=== PATIENT | female | born 1935 | race Caucasian/White ===

== ENCOUNTER 2019-08-27 19:00 | Inpatient (IN) ==
[2019-08-27] MEDS ORDERED: Naloxone 0.4 MG/ML INJ IVP PRN (22:11)
[2019-08-27] MEDS ORDERED: 0.9 % Sodium Chloride 1,000 ML IVC SCH (22:15)
[2019-08-27] MEDS ORDERED: Vancomycin (wt based) 1,000 MG VIAL IVPB SCH (23:00)
[2019-08-27 23:06] LABS: White Blood Count 14.5 K/mcL (4.3-11.1)
[2019-08-27 23:07] LABS: Basophils % 0.1 %; Hematocrit 36.8 % (35.3-44.9); Hemoglobin 11.3 g/dL (11.5-15.4); Immature Granulocytes % 0.4 % (0-4); Lymphocytes % 6.9 %; Mean Corpuscular HGB Conc 30.7 g/dL (31.6-35.5); Mean Corpuscular Hemoglobin 29.6 pg (28.0-33.3); Mean Corpuscular Volume 96.3 fL (83.0-100.0); Mean Platelet Volume 10.9 fL (9.4-12.4); Monocytes # 1.4 K/mcL (0.0-1.3); Monocytes % 9.4 %; Neutrophils # 12.1 K/mcL (1.6-8.9); Platelet Count 289 K/mcL (140-400); Red Blood Count 3.82 M/mcL (3.82-4.97); Red Cell Distribution Width 14.6 % (11.5-14.5); Segmented Neutrophils % 83.2 %
[2019-08-27] MEDS: Azithromycin 500 MG in 0.9 % Sodium Chloride 250 ML IVPB SCH (23:21)
[2019-08-27] MEDS ORDERED: *HR* Metoprolol 5 MG/5 ML VIAL IVP PRN (23:24)
[2019-08-27 23:28] LABS: Potassium 4.1 mEq/L (3.5-5.1)
[2019-08-27] MEDS ORDERED: Acetaminophen IV 1,000 MG/100 ML INFUS..BTL IVPB ONE (23:59)
[2019-08-28] MEDS: Piperacillin/Tazobactam 3.375 GM in 0.9 % Sodium Chloride Mini Bag 100 ML IVPB SCH ×4 (01:14→23:33)
[2019-08-28 04:20] LABS: Adenovirus Not Detected (Not Detect); Coronavirus 229E Not Detected (Not Detect); Coronavirus HKU1 Not Detected (Not Detect); Coronavirus NL63 Not Detected (Not Detect); Coronavirus OC43 Not Detected (Not Detect); Human Metapneumovirus Not Detected (Not Detect); Human Rhinovirus/Enterovirus Not Detected (Not Detect)
[2019-08-28 04:21] LABS: Bordetella Pertussis Not Detected (Not Detect); Chlamydophila pneumoniae Not Detected (Not Detect); Influenza B Not Detected (Not Detect); Mycoplasma pneumoniae Not Detected (Not Detect); Parainfluenza Virus 1 Not Detected (Not Detect); Parainfluenza Virus 2 Not Detected (Not Detect); Parainfluenza Virus 3 Not Detected (Not Detect); Parainfluenza Virus 4 Not Detected (Not Detect); Respiratory Syncytial Virus Not Detected (Not Detect)
[2019-08-28 04:23] LABS: Influenza A Subtype 2009 H1 DETECTED (Not Detect)
[2019-08-28 04:51] LABS: Basophils % 0.1 %; Hematocrit 32.4 % (35.3-44.9); Hemoglobin 10.4 g/dL (11.5-15.4); Immature Granulocytes % 0.5 % (0-4); Lymphocytes % 6.6 %; Mean Corpuscular HGB Conc 32.1 g/dL (31.6-35.5); Mean Corpuscular Volume 93.4 fL (83.0-100.0); Mean Platelet Volume 11.4 fL (9.4-12.4); Monocytes # 1.3 K/mcL (0.0-1.3); Monocytes % 9.2 %; Neutrophils # 12.2 K/mcL (1.6-8.9); Platelet Count 279 K/mcL (140-400); Red Blood Count 3.47 M/mcL (3.82-4.97); Red Cell Distribution Width 14.9 % (11.5-14.5); Segmented Neutrophils % 83.6 %; White Blood Count 14.6 K/mcL (4.3-11.1)
[2019-08-28 05:13] LABS: Calcium 8.7 mg/dL (8.6-10.3); Potassium 4.1 mEq/L (3.5-5.1)
[2019-08-28] MEDS: Famotidine 20 MG/2 ML VIAL IVP SCH ×2 (05:14→18:41)
[2019-08-28] MEDS: Oseltamivir 6 MG/ML MLS GTUBE SCH ×2 (05:14→23:32)
[2019-08-28] MEDS ORDERED: Oseltamivir 6 MG/ML MLS PO SCH (05:15)
[2019-08-28] MEDS ORDERED: Ipratropium Neb 0.5 MG NEBULIZER IH PRN (07:35)
[2019-08-28] MEDS ORDERED: Aminoglycoside Consult 1 EACH MC ONE (08:27)
[2019-08-28] MEDS: amLODIPine 5 MG TABLET GTUBE SCH (09:04)
[2019-08-28] MEDS: Apixaban 5 MG TABLET GTUBE SCH ×2 (09:04→23:32)
[2019-08-28] MEDS: Levalbuterol Neb 0.63 MG/3 ML IH SCH ×3 (10:36→21:41)
[2019-08-28] MEDS ORDERED: Ringers Solution, Lactated 1,000 ML IVC SCH (13:00)
[2019-08-28 13:45] LABS: Estimated Average Glucose 137 mg/dl
[2019-08-28 16:17] LABS: Bacteria,Urine None Seen per hpf (None-Few); Bilirubin,Urine Negative (Negative); Blood,Urine Moderate (Negative); Clarity,Urine Cloudy (Clear); Color,Urine Yellow (Yellow); Glucose,Urine (UA) Normal (Normal); Ketones,Urine Negative (Negative); Leukocyte Esterase,Urine Trace (Negative); Nitrite,Urine Negative (Negative); PH,Urine 5.5 pH Units (5.0-8.0); Protein,Urine 30 mg/dL (Neg-Trace); Specific Gravity,Urine 1.026 (1.010-1.025); Squamous Epithelial Cell,Urine Many per lpf (None-Few); Urobilinogen,Urine Normal (Normal); WBC,Urine 15-30 per hpf (0-3)
[2019-08-28 16:39] LABS: Uric Acid Crystals,Urine Present
[2019-08-28] MEDS ORDERED: Patient Taking Own Medication 1 EACH GTUBE SCH (22:15)
[2019-08-28] MEDS: Azithromycin 500 MG in 0.9 % Sodium Chloride 250 ML IVPB SCH (23:32)
[2019-08-28] MEDS: NAMZARIC GTUBE SCH (23:33)
[2019-08-29 02:35] LABS: Basophils % 0.2 %; Eosinophils % 0.2 %; Hematocrit 32.1 % (35.3-44.9); Hemoglobin 10.2 g/dL (11.5-15.4); Immature Granulocytes % 0.7 % (0-4); Lymphocytes % 7.5 %; Mean Corpuscular HGB Conc 31.8 g/dL (31.6-35.5); Mean Corpuscular Hemoglobin 29.3 pg (28.0-33.3); Mean Corpuscular Volume 92.2 fL (83.0-100.0); Mean Platelet Volume 11.4 fL (9.4-12.4); Monocytes # 0.9 K/mcL (0.0-1.3); Monocytes % 7.1 %; Nucleated Red Blood Cells 0.2 /100 WBC (0); Platelet Count 332 K/mcL (140-400); Red Blood Count 3.48 M/mcL (3.82-4.97); Red Cell Distribution Width 15.1 % (11.5-14.5); Segmented Neutrophils % 84.3 %
[2019-08-29 02:50] LABS: BUN/Creatinine Ratio 43 (6-26); Blood Urea Nitrogen 44 mg/dL (8-23); Calcium 8.5 mg/dL (8.6-10.3); Carbon Dioxide 19 mEq/L (23-29); Chloride 118 mEq/L (98-107); Glucose 96 mg/dL (70-105); Magnesium 2.4 mg/dL (1.6-2.6); Osmolality,Calculated 321 (280-300); Potassium 3.9 mEq/L (3.5-5.1); Sodium 150 mEq/L (136-145); eGFR For African Americans > 60 (> 60); eGFR For Non-African Americans 52 (> 60)
[2019-08-29] MEDS: Levalbuterol Neb 0.63 MG/3 ML IH SCH ×4 (03:22→21:37)
[2019-08-29] MEDS: Famotidine 20 MG/2 ML VIAL IVP SCH ×2 (06:28→17:48)
[2019-08-29] MEDS ORDERED: 0.45 % Sodium Chloride 250 ML IVC SCH ×2 (07:30)
[2019-08-29] MEDS ORDERED: Ringers Solution, Lactated 1,000 ML ONE (07:50)
[2019-08-29] MEDS: Piperacillin/Tazobactam 3.375 GM in 0.9 % Sodium Chloride Mini Bag 100 ML IVPB SCH ×3 (08:54→23:42)
[2019-08-29] MEDS: amLODIPine 5 MG TABLET GTUBE SCH (08:57)
[2019-08-29] MEDS: Apixaban 5 MG TABLET GTUBE SCH ×2 (08:57→21:50)
[2019-08-29] MEDS: Oseltamivir 6 MG/ML MLS GTUBE SCH ×2 (09:19→21:50)
[2019-08-29] MEDS: NAMZARIC GTUBE SCH (09:19)
[2019-08-29] MEDS: Azithromycin 500 MG in 0.9 % Sodium Chloride 250 ML IVPB SCH (23:42)
[2019-08-30] MEDS: Levalbuterol Neb 0.63 MG/3 ML IH SCH ×4 (04:17→21:25)
[2019-08-30 05:03] LABS: Basophils % 0.1 %; Eosinophils # 0.1 K/mcL (0.0-0.6); Eosinophils % 0.5 %; Hematocrit 31.9 % (35.3-44.9); Immature Granulocytes % 0.4 % (0-4); Lymphocytes # 0.8 K/mcL (0.6-4.6); Lymphocytes % 7.7 %; Mean Corpuscular HGB Conc 31.3 g/dL (31.6-35.5); Mean Corpuscular Hemoglobin 29.2 pg (28.0-33.3); Mean Platelet Volume 11.6 fL (9.4-12.4); Monocytes # 0.8 K/mcL (0.0-1.3); Monocytes % 8.4 %; Nucleated Red Blood Cells 0.3 /100 WBC (0); Platelet Count 323 K/mcL (140-400); Red Blood Count 3.43 M/mcL (3.82-4.97); Red Cell Distribution Width 15.2 % (11.5-14.5); Segmented Neutrophils % 82.9 %; White Blood Count 9.7 K/mcL (4.3-11.1)
[2019-08-30 05:34] LABS: BUN/Creatinine Ratio 36 (6-26); Blood Urea Nitrogen 37 mg/dL (8-23); Calcium 8.4 mg/dL (8.6-10.3); Carbon Dioxide 19 mEq/L (23-29); Chloride 121 mEq/L (98-107); Glucose 103 mg/dL (70-105); Magnesium 2.4 mg/dL (1.6-2.6); Osmolality,Calculated 321 (280-300); Potassium 3.4 mEq/L (3.5-5.1); Sodium 151 mEq/L (136-145); eGFR For African Americans > 60 (> 60); eGFR For Non-African Americans 50 (> 60)
[2019-08-30] MEDS: Famotidine 20 MG/2 ML VIAL IVP SCH (05:56)
[2019-08-30] MEDS: Piperacillin/Tazobactam 3.375 GM in 0.9 % Sodium Chloride Mini Bag 100 ML IVPB SCH ×2 (09:19→15:12)
[2019-08-30] MEDS: amLODIPine 5 MG TABLET GTUBE SCH (09:23)
[2019-08-30] MEDS: Apixaban 5 MG TABLET GTUBE SCH ×2 (09:27→21:56)
[2019-08-30] MEDS: NAMZARIC GTUBE SCH (11:19)
[2019-08-30] MEDS: Oseltamivir 6 MG/ML MLS GTUBE SCH ×2 (11:19→21:58)
[2019-08-30] MEDS ORDERED: Furosemide 20 MG/2 ML VIAL IVP ONE (11:48)
[2019-08-30] MEDS: Leptospermum Honey Gel 44 ML TUBE TP SCH ×2 (15:12→21:58)
[2019-08-30 15:58] LABS: ABG Base Excess -1 mEq/L (-2 to 3); ABG HCO3 20 mEq/L (21-27); ABG Oxygen Saturation 95 % (95-98); ABG PCO2 25 mmHg (35-45); ABG PH 7.52 pH Units (7.32-7.45); ABG PO2 63 mmHg (85-104); ABG TCO2 21 mEq/L (20-26)
[2019-08-30] MEDS ORDERED: Perflutren Lipid Microsphere 1.3 ML in 0.9 % Sodium Chloride 8.7 ML IVP ONE (18:00)
[2019-08-30] MEDS: Azithromycin 500 MG in 0.9 % Sodium Chloride 250 ML IVPB SCH (23:42)
[2019-08-31] MEDS: Piperacillin/Tazobactam 3.375 GM in 0.9 % Sodium Chloride Mini Bag 100 ML IVPB SCH ×3 (01:28→17:08)
[2019-08-31 01:40] LABS: BUN/Creatinine Ratio 30 (6-26); Blood Urea Nitrogen 30 mg/dL (8-23); Calcium 8.2 mg/dL (8.6-10.3); Carbon Dioxide 19 mEq/L (23-29); Chloride 117 mEq/L (98-107); Glucose 110 mg/dL (70-105); Magnesium 2.2 mg/dL (1.6-2.6); Osmolality,Calculated 309 (280-300); Potassium 3.3 mEq/L (3.5-5.1); Sodium 146 mEq/L (136-145); eGFR For African Americans > 60 (> 60); eGFR For Non-African Americans 53 (> 60)
[2019-08-31] MEDS: Levalbuterol Neb 0.63 MG/3 ML IH SCH ×4 (04:07→22:24)
[2019-08-31] MEDS ORDERED: Potassium Chloride Elixir 20 MEQ/15 ML UDC GTUBE ONE (07:49)
[2019-08-31] MEDS: amLODIPine 5 MG TABLET GTUBE SCH (08:13)
[2019-08-31] MEDS: Apixaban 5 MG TABLET GTUBE SCH ×2 (08:13→22:00)
[2019-08-31 08:14] LABS: Basophils % 0.3 %; Eosinophils # 0.2 K/mcL (0.0-0.6); Eosinophils % 2.2 %; Hematocrit 34.2 % (35.3-44.9); Hemoglobin 10.8 g/dL (11.5-15.4); Immature Granulocytes % 1.2 % (0-4); Lymphocytes # 0.9 K/mcL (0.6-4.6); Lymphocytes % 8.8 %; Mean Corpuscular HGB Conc 31.6 g/dL (31.6-35.5); Mean Corpuscular Hemoglobin 29.7 pg (28.0-33.3); Monocytes # 0.9 K/mcL (0.0-1.3); Neutrophils # 7.7 K/mcL (1.6-8.9); Nucleated Red Blood Cells 0.4 /100 WBC (0); Platelet Count 340 K/mcL (140-400); Red Blood Count 3.64 M/mcL (3.82-4.97); Red Cell Distribution Width 14.9 % (11.5-14.5); Segmented Neutrophils % 78.5 %; White Blood Count 9.9 K/mcL (4.3-11.1)
[2019-08-31] MEDS: Leptospermum Honey Gel 44 ML TUBE TP SCH ×2 (08:14→22:01)
[2019-08-31] MEDS: NAMZARIC GTUBE SCH (08:14)
[2019-08-31] MEDS: Famotidine 20 MG/2 ML VIAL IVP SCH (08:14)
[2019-08-31] MEDS: Oseltamivir 6 MG/ML MLS GTUBE SCH ×2 (08:16→22:01)
[2019-08-31 09:32] LABS: Mycoplasma pneumoniae IgG 0.06 U/L (<=0.09)
[2019-08-31] MEDS: Azithromycin 500 MG in 0.9 % Sodium Chloride 250 ML IVPB SCH (23:52)
[2019-09-01] MEDS: Piperacillin/Tazobactam 3.375 GM in 0.9 % Sodium Chloride Mini Bag 100 ML IVPB SCH ×3 (02:07→15:59)
[2019-09-01 02:10] LABS: Basophils % 0.3 %; Eosinophils # 0.2 K/mcL (0.0-0.6); Eosinophils % 2.4 %; Hemoglobin 10.4 g/dL (11.5-15.4); Immature Granulocytes % 1.6 % (0-4); Lymphocytes % 10.6 %; Mean Corpuscular HGB Conc 30.6 g/dL (31.6-35.5); Mean Corpuscular Hemoglobin 29.4 pg (28.0-33.3); Mean Platelet Volume 11.5 fL (9.4-12.4); Monocytes # 0.8 K/mcL (0.0-1.3); Monocytes % 8.5 %; Neutrophils # 7.2 K/mcL (1.6-8.9); Nucleated Red Blood Cells 0.4 /100 WBC (0); Platelet Count 339 K/mcL (140-400); Red Blood Count 3.54 M/mcL (3.82-4.97); Segmented Neutrophils % 76.6 %; White Blood Count 9.5 K/mcL (4.3-11.1)
[2019-09-01 02:22] LABS: BUN/Creatinine Ratio 29 (6-26); Blood Urea Nitrogen 24 mg/dL (8-23); Calcium 8.5 mg/dL (8.6-10.3); Carbon Dioxide 18 mEq/L (23-29); Chloride 117 mEq/L (98-107); Glucose 93 mg/dL (70-105); Osmolality,Calculated 306 (280-300); Potassium 3.8 mEq/L (3.5-5.1); Sodium 146 mEq/L (136-145); eGFR For African Americans > 60 (> 60); eGFR For Non-African Americans > 60 (> 60)
[2019-09-01 02:26] LABS: Magnesium 2.2 mg/dL (1.6-2.6); Troponin I 0.03 ng/mL (< 0.04)
[2019-09-01] MEDS: Levalbuterol Neb 0.63 MG/3 ML IH SCH ×4 (03:22→22:15)
[2019-09-01] MEDS: Apixaban 5 MG TABLET GTUBE SCH ×2 (09:56→22:08)
[2019-09-01] MEDS: Famotidine 20 MG/2 ML VIAL IVP SCH (09:56)
[2019-09-01] MEDS: Oseltamivir 6 MG/ML MLS GTUBE SCH ×2 (09:56→22:08)
[2019-09-01] MEDS: amLODIPine 5 MG TABLET GTUBE SCH (09:58)
[2019-09-01] MEDS: Leptospermum Honey Gel 44 ML TUBE TP SCH ×2 (09:58→22:08)
[2019-09-01] MEDS: NAMZARIC GTUBE SCH (09:59)
[2019-09-01] MEDS: GuaiFENesin Liq 200 MG/10 ML UDC GTUBE PRN (18:44)
[2019-09-02] MEDS: Piperacillin/Tazobactam 3.375 GM in 0.9 % Sodium Chloride Mini Bag 100 ML IVPB SCH ×2 (01:15→09:32)
[2019-09-02 01:56] LABS: Hematocrit 33.3 % (35.3-44.9); Hemoglobin 10.2 g/dL (11.5-15.4); Mean Corpuscular HGB Conc 30.6 g/dL (31.6-35.5); Mean Corpuscular Hemoglobin 29.3 pg (28.0-33.3); Mean Corpuscular Volume 95.7 fL (83.0-100.0); Mean Platelet Volume 11.2 fL (9.4-12.4); Platelet Count 324 K/mcL (140-400); Red Blood Count 3.48 M/mcL (3.82-4.97); Red Cell Distribution Width 14.9 % (11.5-14.5); White Blood Count 10.1 K/mcL (4.3-11.1)
[2019-09-02 02:21] LABS: BUN/Creatinine Ratio 24 (6-26); Blood Urea Nitrogen 20 mg/dL (8-23); Calcium 8.2 mg/dL (8.6-10.3); Carbon Dioxide 20 mEq/L (23-29); Chloride 112 mEq/L (98-107); Glucose 123 mg/dL (70-105); Osmolality,Calculated 296 (280-300); Potassium 3.4 mEq/L (3.5-5.1); Sodium 141 mEq/L (136-145); eGFR For African Americans > 60 (> 60); eGFR For Non-African Americans > 60 (> 60)
[2019-09-02] MEDS: Levalbuterol Neb 0.63 MG/3 ML IH SCH ×4 (03:35→21:39)
[2019-09-02] MEDS: Azithromycin 250 MG TABLET PO SCH (09:26)
[2019-09-02] MEDS: Apixaban 5 MG TABLET GTUBE SCH ×2 (09:26→21:31)
[2019-09-02] MEDS: amLODIPine 5 MG TABLET GTUBE SCH (09:27)
[2019-09-02] MEDS: Famotidine 20 MG/2 ML VIAL IVP SCH (09:32)
[2019-09-02] MEDS: Leptospermum Honey Gel 44 ML TUBE TP SCH (09:33)
[2019-09-02] MEDS: NAMZARIC GTUBE SCH (09:33)
[2019-09-02] MEDS ORDERED: *HR* LORazepam 0.5 MG TABLET PO PRN (14:19)
[2019-09-02] MEDS: *HR* OxyCODONE Oral Soln 5 MG/5 ML UD.LIQ GTUBE PRN ×2 (15:05→21:31)
[2019-09-02] MEDS ORDERED: Scopolamine Patch 1.5 MG PATCH.TD72 TD SCH (23:30)
[2019-09-02] MEDS: Atropine Sulfate 1% 40 DROP/2 ML BOTTLE SL PRN (23:59)
[2019-09-03] MEDS ORDERED: *HR* LORazepam 2 MG/ML VIAL IVP ONE (01:20)
[2019-09-03] MEDS: Levalbuterol Neb 0.63 MG/3 ML IH SCH ×2 (03:23→10:50)
[2019-09-03] MEDS: GuaiFENesin Liq 200 MG/10 ML UDC GTUBE PRN (04:23)
[2019-09-03] MEDS: Atropine Sulfate 1% 40 DROP/2 ML BOTTLE SL PRN (04:23)
[2019-09-03 06:50] VITALS: BP 92/56
[2019-09-03] MEDS ORDERED: *HR* LORazepam 2 MG/ML VIAL IVP PRN (09:56)
[2019-09-03] MEDS: *HR* OxyCODONE Oral Soln 5 MG/5 ML UD.LIQ GTUBE PRN (10:24)
[2019-09-03] MEDS: Leptospermum Honey Gel 44 ML TUBE TP SCH ×2 (10:54)
[2019-09-03] MEDS: amLODIPine 5 MG TABLET GTUBE SCH (10:55)
[2019-09-03] MEDS: Azithromycin 250 MG TABLET PO SCH (10:55)
[2019-09-03] MEDS ORDERED: Levalbuterol Neb 0.63 MG/3 ML IH PRN (11:19)
== END 2019-09-03 13:47 | disposition hospice, inpatient (51) | DRG 871 ==
LOC: 2NENU → SUATTDRO 22:11
PROVIDERS: ADMIT Internal Medicine; ATTEND Internal Medicine

== ENCOUNTER 2019-09-03 11:10 | Inpatient (IN) ==
[2019-09-03] MEDS ORDERED: *HR* OxyCODONE Immed Rel 5 MG TABLET PO PRN (11:48)
[2019-09-03] MEDS: *HR* LORazepam 2 MG/ML VIAL IVP PRN ×2 (14:39→23:37)
[2019-09-03] MEDS: Atropine Sulfate 1% 40 DROP/2 ML BOTTLE SL PRN ×2 (16:28→23:27)
[2019-09-03] MEDS: *HR* FentaNYL (PF) 100 MCG/2 ML VIAL IVP PRN ×3 (16:28→20:12)
[2019-09-03] MEDS ORDERED: *HR* OxyCODONE Immed Rel 5 MG TABLET PO SCH (18:00)
[2019-09-03] MEDS: *HR* OxyCODONE Immed Rel 5 MG TABLET GTUBE SCH (23:16)
[2019-09-04] MEDS: *HR* FentaNYL (PF) 100 MCG/2 ML VIAL IVP PRN ×4 (00:15→22:56)
[2019-09-04] MEDS ORDERED: *HR* OxyCODONE Immed Rel 5 MG TABLET GTUBE PRN (03:00)
[2019-09-04] MEDS: *HR* OxyCODONE Immed Rel 5 MG TABLET GTUBE SCH ×4 (05:23→23:58)
[2019-09-04] MEDS: Atropine Sulfate 1% 40 DROP/2 ML BOTTLE SL PRN ×9 (08:52→23:10)
[2019-09-04] MEDS: *HR* LORazepam 2 MG/ML VIAL IVP PRN ×3 (08:52→23:43)
[2019-09-04] MEDS: Haloperidol Lactate 5 MG/ML VIAL IVP PRN (17:38)
[2019-09-05] MEDS ORDERED: Scopolamine Patch 1.5 MG PATCH.TD72 TD SCH (00:30)
[2019-09-05] MEDS: *HR* FentaNYL (PF) 100 MCG/2 ML VIAL IVP PRN ×5 (00:37→11:26)
[2019-09-05] MEDS: Atropine Sulfate 1% 40 DROP/2 ML BOTTLE SL PRN ×3 (01:49→06:10)
[2019-09-05] MEDS: *HR* LORazepam 2 MG/ML VIAL IVP PRN ×2 (03:59→10:24)
[2019-09-05] MEDS: *HR* OxyCODONE Immed Rel 5 MG TABLET GTUBE SCH (06:09)
[2019-09-05 07:49] VITALS: BP 116/79
[2019-09-05] MEDS: Haloperidol Lactate 5 MG/ML VIAL IVP PRN (08:28)
[2019-09-05] MEDS ORDERED: Morphine Sulfate Oral CONC 10 MG/0.5 ML ORAL.SYG SL PRN (09:29)
== END 2019-09-05 16:30 | disposition expired | DRG 951 ==
LOC: 2NENU 13:51
PROVIDERS: ADMIT Internal Medicine Hospice and Palliative Medicine; ATTEND Internal Medicine Hospice and Palliative Medicine